=== PATIENT | female | born 2000 | race Caucasian/White ===

== ENCOUNTER → 2025-08-13 10:57 | Outpatient (CLI) | payer OTHER, SELFPAY ==
--- NOTE | 2025-08-13 11:04 | DI.RAD.S_ITS ---
PROCEDURE: XR WRIST LT MIN 3V INDICATIONS: LT WRIST PAIN TECHNIQUE: 3 views of the wrist were acquired. COMPARISON: None. FINDINGS: Bones: No acute fractures or dislocations. No suspicious bony lesions. Soft tissues: No suspicious soft tissue calcifications. IMPRESSION: No acute bony abnormality. Dictated by: Nicole CHURCH Interpreted: Parmjit Sahni MD on 08/13/2025 at 11:31 Transcribed by: ANDREW on 08/13/2025 at 11:32 Approved by: Parmjit Sahni M.D. on 08/13/2025 at 14:29
== END ==
PROVIDERS: PCP Family Medicine; Referring Provider Family Medicine; Visit Provider Family Medicine
DX: M25.532 Pain in left wrist (principal)
CPT/HCPCS: 73110

== ENCOUNTER → 2025-10-01 12:07 | Outpatient (CLI) | payer OTHER, SELFPAY ==
--- NOTE | 2025-10-01 12:08 | DI.ECHO.S_ITS ---
[facility] : : [address] : : [place] : : [id number] : : Phone: [phone] Echocardiogram Report + + :Name: GURVINDER VELEZ Study Date: 10/01/2025 Height: 65 in : :[facility] ReadingLocation: Weight: 160 lb : : Gender: Female BSA: 1.8 m2 : :: 2000 Age: 25 yrs BP: 147/88 mmHg: :Reason For Study: PALPITATIONS : :Ordering Physician: ELLIOT, : :NISHANT Silveira Performed By: Zi Lambert : :Referring: NISHANT ZARATE : + + Interpretation Summary Normal echocardiogram. Details as below. Procedure: A two-dimensional transthoracic echocardiogram with color flow and Doppler was performed. The study quality was technically difficult. There is no prior echocardiogram noted for this patient. The patient was in a tachycardic rhythm during the exam. Left Ventricle: The left ventricle is normal in size. There is normal left ventricular wall thickness. There is no ventricular septal defect visualized. The left ventricular ejection fraction is grossly normal. Right Ventricle: The right ventricle is grossly normal size. The right ventricular systolic function is normal. Atria: The left atrium grossly appears normal in size. Right atrial size is normal. There is no Doppler evidence for an interatrial shunt. Mitral Valve: The mitral valve leaflets appear normal. There is no evidence of stenosis, fluttering, or prolapse. There is no mitral regurgitation noted. Aortic Valve: The aortic valve is trileaflet. The aortic valve opens well. No aortic regurgitation is present. Tricuspid Valve: The tricuspid valve is not well visualized, but is grossly normal. No tricuspid regurgitation. Pulmonic Valve: The pulmonic valve leaflets are thin and pliable; valve motion is normal. There is no pulmonic valvular regurgitation. Great Vessels: The aortic root is normal size. The dimensions of the ascending aorta are normal. The pulmonary artery is normal size. The IVC is of normal diameter and collapses greater than 50% with a sniff. This suggests a low right atrial pressure of 3 mm Hg. Pericardium/ Pleura There is no pericardial effusion. There is no pleural effusion. MMode/2D Measurements & Calculations LVIDd: 4.5 cm LVOT diam: 1.9 cm LVIDs: 3.1 cm Ao root diam: 2.6 cm FS: 31.0 % asc Aorta Diam: 2.5 cm EPSS: 0.52 cm Ao Arch Diam (Prox Trans): 1.4 cm IVSd: 0.84 cm LVPWd: 0.84 cm LV daniels. diameter/BSA (cm/m^2): 2.5 LV sys. diameter/BSA (cm/m^2): 1.7 LA A4 area: 12.9 cm2 RA long axis: 4.8 cm LA length (vol): 5.4 cm RA area: 9.8 cm2 RA vol: 17.1 ml RA : 9.5 ml/m2 IVC diam: 1.2 cm TAPSE: 3.2 cm Doppler Measurements & Calculations Ao V2 max: 116.7 cm/sec LVOT Max Primo: 96.6 cm/sec Ao V2 mean: 83.8 cm/sec LV V1 max P.7 mmHg Ao max P.4 mmHg LV V1 VTI: 19.2 cm Ao mean P.1 mmHg MARICARMEN(I,D): 2.6 cm2 Ao V2 VTI: 19.8 cm MARICARMEN(V,D): 2.2 cm2 sev ratio: 0.97 MARICARMEN indexed to BSA (cm^2/m^2): 1.5 MV E max primo: 71.0 cm/sec PA V2 max: 161.2 cm/sec MV A max primo: 86.8 cm/sec PA V2 mean: 104.3 cm/sec MV E/A: 0.82 PA mean P.0 mmHg Med Peak E' Primo: 13.2 cm/sec PA pr(Accel): 31.0 mmHg E/E' med: 5.4 Lat Peak E' Primo: 8.0 cm/sec E/E' lat: 8.9 E/e' average: 7.1 MV dec time: 0.09 sec SV(LVOT): 52.2 ml Reading Physician:04:25 PM
== END ==
LOC: ECHO 12:07
PROVIDERS: PCP Family Medicine; Referring Provider Family Medicine; Visit Provider Family Medicine
DX: R00.2 Palpitations (principal)
CPT/HCPCS: 93306